=== PATIENT | male | born 1940 | race Two or more races ===

== ENCOUNTER → 2024-04-11 | Outpatient (CLI) | payer MEDICARE, BC, SELFPAY ==
[2024-04-11 09:13] LABS: Glucose Estimated Average 183 mg/dL (80-131)
[2024-04-11 09:46] LABS: Alanine Aminotransferase 20 U/L (10-49); Albumin, Serum 4.4 gm/dL (3.4-4.8); Albumin/Globulin Ratio 1.6 (1.2-2.2); Alkaline Phosphatase 53 U/L (46-116); Anion Gap 7 (7-16); Aspartate Amino Transferase 22 U/L (0-34); BUN/Creatinine Ratio 12 Ratio (12-20); Bilirubin,Total 0.5 mg/dL (0.3-1.2); Blood Urea Nitrogen 17 mg/dL (9-23); Calcium 9.5 mg/dL (8.3-10.6); Calcium (Corrected) 9.5 mg/dL (8.5-10.1); Carbon Dioxide 25.9 mMol/L (20.0-31.0); Cardiac Risk Estimate 2.9 RATIO (4.0-6.7); Chloride 106 mMol/L (98-107); Cholesterol 121 mg/dL (132-200); Creatinine (Component) 1.4 mg/dL (0.6-1.3); Globulin 2.8 gm/dL (2.3-3.5); Glucose 166 mg/dL (74-106); HDL Cholesterol 42 mg/dL (40-60); LDL Cholesterol,Calculated 59 mg/dL (0-130); Osmolality,Calculated 283 (275-295); Potassium 4.7 mMol/L (3.4-5.1); Sodium 139 mMol/L (136-145); Total Protein 7.2 gm/dL (5.7-8.2); Triglycerides 99 mg/dL (30-150); eGFR 50 See Note
== END | disposition home or self-care (01) ==
LOC: COPL 07:06
PROVIDERS: PCP Family Medicine; Referring Provider Internal Medicine Cardiovascular Disease; Visit Provider Family Medicine
DX: I25.10 Atherosclerotic heart disease of native coronary artery without angina pectoris (principal); E78.2 Mixed hyperlipidemia; I10 Essential (primary) hypertension
CPT/HCPCS: 36415; 80053; 80061; 83036

== ENCOUNTER → 2024-07-11 | Outpatient (CLI) | payer MEDICARE, BC, SELFPAY ==
[2024-07-11 09:03] LABS: Collection Type, Urine Clean Catch; Squamous Epithelial Cell,Urine 0 /hpf (0-5)
[2024-07-11 09:18] LABS: Basophils # (Auto) 0.1 Thou/mm3 (0.0-0.2); Basophils % (Auto) 2 % (0-2.5); Eosinophils # (Auto) 0.5 Thou/mm3 (0.0-0.5); Eosinophils % (Auto) 8 % (0-10); Hematocrit 38.3 % (41.0-53.0); Hemoglobin 12.6 g/dL (13.5-16.0); Immature Granulocytes % (Auto) 0 % (0-0); Immature Granulocytes Auto 0.02 Thou/mm3 (0.00-0.00); Lymphocytes # (Auto) 1.6 Thou/mm3 (1.0-4.8); Lymphocytes % (Auto) 27 % (10-50); Mean Corpuscular HGB Conc 32.9 g/dl (31.0-37.0); Mean Corpuscular Hemoglobin 30.5 pg (25.0-35.0); Mean Corpuscular Volume 93 fL (80-100); Monocytes # (Auto) 0.5 Thou/mm3 (0.0-0.8); Monocytes % (Auto) 8 % (0-12); Neutrophils # (Auto) 3.5 Thou/mm3 (1.8-7.7); Neutrophils % (Auto) 56 % (37-80); Nucleated Red Blood Cell % 0 /100 WBC (0); Platelet Count 156 Thou/mm3 (140-440); RDW Standard Deviation 45.3 fL (35.1-43.9); Red Blood Count 4.13 Miln/mm3 (4.50-5.90); White Blood Count 6.2 Thou/mm3 (3.8-10.6)
[2024-07-11 09:34] LABS: Glucose Estimated Average 189 mg/dL (80-131); Hemoglobin A1C 8.2 % Hgb (4.8-6.0)
[2024-07-11 09:37] LABS: Bilirubin,Urine Negative (Negative); Blood,Urine Negative (Negative); Clarity,Urine Clear (Clear/Hazy); Color,Urine Lt-Yellow (Lt Yel-Yel); Glucose, Urine 4+ (Negative); Ketones,Urine Negative (Negative); Leukocyte Esterase,Urine Negative (Negative); Nitrite,Urine Negative (Negative); Protein,Urine 1+ (Neg - Trace); RBC,Urine 1 /hpf (0-3); Specific Gravity,Urine 1.025 (1.001-1.035); Urobilinogen,Urine Negative mg/dL (0.0-1.0); WBC,Urine 1 /hpf (0-5)
[2024-07-11 10:05] LABS: Creatinine MALB Rnd Ur 73 mg/dL (30-125); Microalbumin Creat Ratio 179 mg/gCrea (<30); Microalbumin, Random Urine 131 mg/L (0-300)
[2024-07-11 10:43] LABS: Alanine Aminotransferase 17 U/L (10-49); Albumin, Serum 4.4 gm/dL (3.4-4.8); Albumin/Globulin Ratio 1.5 (1.2-2.2); Alkaline Phosphatase 54 U/L (46-116); Anion Gap 7 (7-16); Aspartate Amino Transferase 20 U/L (0-34); BUN/Creatinine Ratio 17 Ratio (12-20); Bilirubin,Total 0.6 mg/dL (0.3-1.2); Blood Urea Nitrogen 22 mg/dL (9-23); Calcium 9.4 mg/dL (8.3-10.6); Calcium (Corrected) 9.4 mg/dL (8.5-10.1); Carbon Dioxide 25.6 mMol/L (20.0-31.0); Cardiac Risk Estimate 2.5 RATIO (4.0-6.7); Chloride 107 mMol/L (98-107); Cholesterol 133 mg/dL (132-200); Creatinine (Component) 1.3 mg/dL (0.6-1.3); Globulin 2.9 gm/dL (2.3-3.5); Glucose 168 mg/dL (74-106); HDL Cholesterol 54 mg/dL (40-60); LDL Cholesterol,Calculated 59 mg/dL (0-130); Osmolality,Calculated 286 (275-295); Potassium 4.8 mMol/L (3.4-5.1); Sodium 140 mMol/L (136-145); Total Protein 7.3 gm/dL (5.7-8.2); Triglycerides 102 mg/dL (30-150); eGFR 54 See Note
[2024-07-11 11:03] LABS: Thyroid Stimulating Hormone 1.92 uIU/mL (0.55-4.78)
== END | disposition home or self-care (01) ==
PROVIDERS: PCP Family Medicine; Referring Provider Family Medicine; Visit Provider Family Medicine
DX: Z00.00 Encounter for general adult medical examination without abnormal findings (principal); I12.9 Hypertensive chronic kidney disease with stage 1 through stage 4 chronic kidney disease, or unspecified chronic kidney disease; E11.22 Type 2 diabetes mellitus with diabetic chronic kidney disease; N18.31 Chronic kidney disease, stage 3a; E78.2 Mixed hyperlipidemia; E11.59 Type 2 diabetes mellitus with other circulatory complications
CPT/HCPCS: 36415; 80053; 80061; 81001; 82043; 82570; 83036; 84443; 85025

== ENCOUNTER 2024-12-17 09:39 | Emergency (ER) | payer MEDICARE, BC, SELFPAY ==
[2024-12-17] VITALS (8 sets, daily range): BP systolic 101–146; BP diastolic 57–78; PULSE 60–85; RESP 17–19; TEMP 36.6–37; O2SAT 96–98; BMI 27.6
--- NOTE | 2024-12-17 10:52 | EDRME_ITS ---
Rapid Medical Screening Exam [facility] Arrival date/time: 12/17/24 09:39 Chief Complaint: Eye Problems Vital signs: Vital Signs Temperature 98.6 F 12/17/24 09:49 Pulse Rate 85 12/17/24 09:49 Respiratory Rate 19 12/17/24 09:49 Blood Pressure 101/65 12/17/24 09:49 Pulse Oximetry (%) 98 12/17/24 09:49 Oxygen Delivery Method Room Air 12/17/24 09:49 Pulse ox room air is 98% Vital signs reviewed by provider: Yes [facility] Narrative: 84-year-old male who is status post fall hitting cement with the left side of his face. This happened in September and the patient ignored the fall. Last night he developed pain to the left buddhism which caused him to have vomiting issues and loss of sight in his left eye.
--- NOTE | 2024-12-17 10:54 | XR_ITS ---
Examination: CT brain head without contrast. 2-D sagittal coronal reconstructions Date and time of exam:December 17, 2024 1303 hours INDICATIONS: Patient fell 10 weeks ago with injury to the head, head pain vision loss CTDI: vol (mGy):59.2 DLP: (mGycm):1180 Technique: Multiple CT axial sections of the brain have been obtained, 5 mm slice thickness. Contrast has not been administered. 2-D sagittal, coronal reconstructions have been obtained Low dose protocols were performed. One or more of the following dose reduction techniques were used; automated exposure control, adjustment of the mA and/or KV according to patient size, use of iterative reconstruction technique. Findings: Mild to moderate ventricular enlargement. No acute hemorrhage No mass effect upon the ventricular system Encephalomalacia right posterior temporal lobe Cranial vault intact IMPRESSION: No acute hemorrhage mass effect or midline shift
--- NOTE | 2024-12-17 11:37 | PC.NURSE ---
pt with c/o blurred vision to the left eye sp fall 2 weeks ago. states he tripped over curb, did not seek medical care at that time. pt also reports intermittent sharp pain to left holiness x2 days. redness to left eye noted. pt without further complaints at this time. orders received and initiated. call light placed within reach. at bedside. plan of care ongoing.
[2024-12-17 11:51] LABS: Basophils # (Auto) 0.1 Thou/mm3 (0.0-0.2); Basophils % (Auto) 1 % (0-2.5); Eosinophils # (Auto) 0.2 Thou/mm3 (0.0-0.5); Eosinophils % (Auto) 2 % (0-10); Hematocrit 38.5 % (41.0-53.0); Hemoglobin 12.8 g/dL (13.5-16.0); Immature Granulocytes Auto 0.02 Thou/mm3 (0.00-0.00); Lymphocytes # (Auto) 1.9 Thou/mm3 (1.0-4.8); Lymphocytes % (Auto) 22 % (10-50); Mean Corpuscular HGB Conc 33.2 g/dl (31.0-37.0); Mean Corpuscular Hemoglobin 30.7 pg (25.0-35.0); Mean Corpuscular Volume 92 fL (80-100); Monocytes # (Auto) 0.8 Thou/mm3 (0.0-0.8); Monocytes % (Auto) 9 % (0-12); Neutrophils # (Auto) 5.6 Thou/mm3 (1.8-7.7); Neutrophils % (Auto) 66 % (37-80); Nucleated Red Blood Cell # 0.00 Thou/mm3 (0.00-0.00); Nucleated Red Blood Cell % 0 /100 WBC (0); Platelet Count 186 Thou/mm3 (140-440); RDW Standard Deviation 44.9 fL (35.1-43.9); Red Blood Count 4.17 Miln/mm3 (4.50-5.90); White Blood Count 8.4 Thou/mm3 (3.8-10.6)
[2024-12-17 12:11] LABS: Alanine Aminotransferase 15 U/L (10-49); Albumin, Serum 4.7 gm/dL (3.4-4.8); Albumin/Globulin Ratio 1.5 (1.2-2.2); Alkaline Phosphatase 51 U/L (46-116); Anion Gap 12 (7-16); Aspartate Amino Transferase 25 U/L (0-34); BUN/Creatinine Ratio 15 Ratio (12-20); Bilirubin,Total 0.8 mg/dL (0.3-1.2); Blood Urea Nitrogen 21 mg/dL (9-23); Calcium 9.9 mg/dL (8.3-10.6); Calcium (Corrected) 9.9 mg/dL (8.5-10.1); Carbon Dioxide 23.9 mMol/L (20.0-31.0); Chloride 103 mMol/L (98-107); Creatinine (Component) 1.4 mg/dL (0.6-1.3); Estimated Creatinine Clearance 39.8 mL/min (>60); Globulin 3.2 gm/dL (2.3-3.5); Glucose 156 mg/dL (74-106); Osmolality,Calculated 283 (275-295); Potassium 4.5 mMol/L (3.4-5.1); Sodium 139 mMol/L (136-145); Total Protein 7.9 gm/dL (5.7-8.2); eGFR 49 See Note
--- NOTE | 2024-12-17 12:21 | XR_ITS ---
Examination: CT of orbits without intravenous contrast. 2-D sagittal reconstructions. 3-D reconstructions. Date and time of exam:December 17, 2024 1301 hours INDICATIONS: Patient fell 10 weeks ago with injury to the face, orbital pain CTDI: vol (mGy):38.5 DLP: (mGycm):278 Technique: Multiple axial images of maxillofacial region, 3.0 mm slice thickness. 2-D sagittal and coronal reconstructions. 3-D reconstructions. Low dose protocols were performed. One or more of the following dose reduction techniques were used; automated exposure control, adjustment of the mA and/or KV according to patient size, use of iterative reconstruction technique. Findings: Orbital rims appear intact The optic globes are intact with no retro-orbital contusion Optic nerves are unremarkable No nasal bone fracture. Frontal bones intact IMPRESSION: Orbital rims intact The optic globes are intact with no retro-orbital contusion.
--- NOTE | 2024-12-17 12:24 | PD.EDEYE ---
ED Eye Problem RME/HPI General Chief complaint: Eye Problems Stated complaint: Fell in September, can't see out of left eye Time Seen by Provider: 12/17/24 13:22 Arrival date/time: 12/17/24 09:39 Limitations: no limitations RME / HPI RME / HPI Narrative: 84-year-old male who is status post fall hitting cement with the left side of his face. This happened in September and the patient ignored the fall. Last night he developed pain to the left orthodox which caused him to have vomiting issues and loss of sight in his left eye. DR. PRIYANK NEGRON ED EVALUATION 84 year old male presents to the ED for evaluation of blurred vision today. Reportedly during his fall had struck the left side of his head on concrete without any loss of consciousness. States since the fall, he has had limited vision in the left eye. Now accompanied by a headache, described as aching in nature, located most to the left side. Rating as moderate. No other associated symptoms reported. Related Data Home Medications ?Medication ?Instructions ?Recorded ?Confirmed carvedilol 25 mg tablet (Coreg) 80 mg PO QDAY #0 tabs 03/19/14 09/20/17 metformin 850 mg tablet 850 mg PO BID #0 tabs 03/19/14 09/20/17 (Glucophage) glipizide 5 mg tablet, extended 5 mg PO QDAY #0 tabs 06/24/17 09/20/17 release 24 hr (Glucotrol XL) sitagliptin phosphate 100 mg 100 mg PO QDAY #0 tabs 06/24/17 09/20/17 tablet (Januvia) atorvastatin 10 mg tablet (Lipitor) 10 mg PO HS #0 tabs 06/27/17 09/20/17 aspirin 81 mg tablet,delayed 81 mg PO QDAY 09/20/17 09/20/17 release (Aspir-) omega 5-imw-kmg-fish oil 1,000 mg 1,000 mg PO QDAY 09/20/17 09/20/17 (120 mg-180 mg) capsule (Fish Oil) pioglitazone 15 mg tablet 15 mg PO QDAY 09/20/17 09/20/17 Previous Rx's ?Medication ?Instructions ?Recorded acetazolamide 500 mg 500 mg PO BID #60 caps 12/18/24 capsule,extended release brimonidine 0.2 % eye drops 1 drp ophthalmic (eye) BID #5 mL 12/18/24 dorzolamide 2 % eye drops 1 drp ophthalmic (eye) BID #10 mL 12/18/24 latanoprost 0.005 % eye drops 1 drp ophthalmic (eye) QPM #2.5 mL 12/18/24 timolol 0.5 % eye drops 1 drp ophthalmic (eye) BID #5 mL 12/18/24 Allergies Allergy/AdvReac Type Severity Reaction Status Date / Time NKA* Allergy Uncoded 12/17/24 09:45 Review of Systems Review of Systems Systems Reviewed: All systems reviewed, normal except as documented Past Medical History Past Medical History NEUROLOGIC: Negative Neurological Disorders or Seizures CARDIAC: Positive Cardiac Disorders, Coronary Artery Disease (CABG), Hypercholesterolemia, Congestive Heart Failure and Hypertension RESPIRATORY: Negative Chronic Obstructive Pulmonary Disease (COPD) (+smoker-pt denies) GASTROINTESTINAL: Negative Gastrointestinal Disorders GENITOURINARY: Negative Genitourinary Disorders or Renal Disease MUSCULOSKELETAL: Positive Musculoskeletal Disorders and Arthritis ENT: Positive Cataracts ENDOCRINE: Positive Endocrine Disorders and Diabetes Mellitus Type 2; Negative Diabetes Mellitus Type 1 HEMATOLOGIC: Negative Blood Disorders OTHER HISTORY: Positive Blood Transfusions and Chicken Pox; Negative Blood Transfusion Reaction or Anesthesia Reactions Family History FAMILY HISTORY: Positive Family Respiratory Disorders (father) and Family Cardiac Disorders (mother, brother); Negative Family Anesthesia Reaction (pt denies) Surgical History SURGICAL: Positive Cardiac Surgery, Coronary Artery Bypass Graft and Ear Surgery Social History SMOKING STATUS: Current every day smoker ED Exam General Limitations: Present no limitations General appearance: Present alert and in no apparent distress Head Head exam: Present atraumatic, normocephalic and normal inspection Eye Eye exam: Present other (Left sided scleral injection, left hyphema, left pupils is 5mm and sluggish to light accommodation, right pupils is 3 mm ) ENT ENT exam: Present normal exam, normal oropharynx and mucous membranes moist Neck Neck exam: Present normal inspection, full ROM and trachea midline Chest Chest inspection: Present normal inspection and symmetric chest wall rise Respiratory Respiratory exam: Present normal lung sounds bilaterally Cardiovascular Cardiovascular exam: Present regular rate, normal rhythm and normal heart sounds Abdominal Exam Abdominal exam: Present soft and normal bowel sounds Extremities Exam Extremities exam: Present normal inspection and full ROM Back Exam Back exam: Present normal inspection and full ROM Neurological Exam Neurological exam: Present alert, oriented X3 and CN II-XII intact Psychiatric Psychiatric exam: Present normal affect and normal mood Skin Skin exam: Present warm, dry, intact and normal color Course Quality Measures none Orders Category Date Time Status CT Screening NOW Care 12/17/24 12:[address] facial bones wo con Stat Exams 12/17/24 12:[address] head/brain wo con Stat Exams 12/17/24 10:[address] orbit BI wo/w con Stat Exams 12/17/24 12:21 Completed CBC Stat Lab 12/17/24 11:19 Completed CMP [Comprehensive Metabolic Panel] Stat Lab 12/17/24 11:19 Completed INR [Prothrombin Time with INR] Stat Lab 12/17/24 11:19 Completed PTT [Partial Thromboplastin Time] Stat Lab 12/17/24 11:19 Completed ACETAzolaMIDE [Diamox] Med 12/18/24 00:52 Discontinued 500 mg PO X1 ONE Vital Signs Vital signs: Vital Signs Temperature 98.6 F 12/17/24 09:49 Pulse Rate 85 12/17/24 09:49 Respiratory Rate 19 12/17/24 09:49 Blood Pressure 101/65 12/17/24 09:49 Pulse Oximetry (%) 98 12/17/24 09:49 Oxygen Delivery Method Room Air 12/17/24 09:49 Pulse ox is 98% on room air which is adequate. Eye MDM Narrative MDM Narrative:: Nia Eaton am scribing for and in the presence of Dr. Lee. 1800: Patient signed out to Dr. Irby pending crab butcher consultation. Patient data External records reviewed:: [facility] previous records (I reviewed H&P on 09/20/2017) Clinical information provided by:: patient Social determinants that could affect healthcare access:: none Patient has the following chronic illnesses:: Diabetes, hyperlipidemia How is presenting disease/condition affected by chronic disease/condition?: uneffected by Evaluation data The following diagnostics were reviewed and interpreted by me:: lab results and radiology exam(s) Lab and/or radiology exams considered but not ordered:: None Interpretation Summary: Ordering Physician: David Wang PA-C Date of Service: 12/17/24 Procedure(s): CT head/brain wo con Accession Number(s): [id number] cc: Roland Azar MD; Won Angelo MD; David Wang PA-C~ Examination: CT brain head without contrast. 2-D sagittal coronal reconstructions Date and time of exam:December 17, 2024 1303 hours INDICATIONS: Patient fell 10 weeks ago with injury to the head, head pain vision loss CTDI: vol (mGy):59.2 DLP: (mGycm):1180 Technique: Multiple CT axial sections of the brain have been obtained, 5 mm slice thickness. Contrast has not been administered. 2-D sagittal, coronal reconstructions have been obtained Low dose protocols were performed. One or more of the following dose reduction techniques were used; automated exposure control, adjustment of the mA and/or KV according to patient size, use of iterative reconstruction technique. Findings: Mild to moderate ventricular enlargement. No acute hemorrhage No mass effect upon the ventricular system Encephalomalacia right posterior temporal lobe Cranial vault intact IMPRESSION: No acute hemorrhage mass effect or midline shift Dictated By: Won Angelo MD Signed By: <Electronically signed by Won Angelo MD in OV> 12/17/24 1328 =- Ordering Physician: Juve Lee MD Date of Service: 12/17/24 Procedure(s): CT orbit BI wo/w con Accession Number(s): [id number] cc: Roland Azar MD; Won Angelo MD; Juve Lee MD~ Examination: CT of orbits without intravenous contrast. 2-D sagittal reconstructions. 3-D reconstructions. Date and time of exam:December 17, 2024 1301 hours INDICATIONS: Patient fell 10 weeks ago with injury to the face, orbital pain CTDI: vol (mGy):38.5 DLP: (mGycm):278 Technique: Multiple axial images of maxillofacial region, 3.0 mm slice thickness. 2-D sagittal and coronal reconstructions. 3-D reconstructions. Low dose protocols were performed. One or more of the following dose reduction techniques were used; automated exposure control, adjustment of the mA and/or KV according to patient size, use of iterative reconstruction technique. Findings: Orbital rims appear intact The optic globes are intact with no retro-orbital contusion Optic nerves are unremarkable No nasal bone fracture. Frontal bones intact IMPRESSION: Orbital rims intact The optic globes are intact with no retro-orbital contusion. Dictated By: Won Angelo MD Signed By: <Electronically signed by Won Angelo MD in OV> 12/17/24 1330 =- Ordering Physician: Juve Lee MD Date of Service: 12/17/24 Procedure(s): CT facial bones wo con Accession Number(s): [id number] cc: Roland Azar MD; Won Angelo MD; Juve Lee MD~ Examination: CT maxillofacial, without intravenous contrast. 2-D sagittal reconstructions. 3-D reconstructions. Date and time of exam:December 17, 2024 1303 hours INDICATIONS: Patient fell 10 weeks ago with injury to the face, facial orbital pain CTDI: vol (mGy):29 DLP: (mGycm):544 Technique: Multiple axial images of maxillofacial region, 3.0 mm slice thickness. 2-D sagittal and coronal reconstructions. 3-D reconstructions. Low dose protocols were performed. One or more of the following dose reduction techniques were used; automated exposure control, adjustment of the mA and/or KV according to patient size, use of iterative reconstruction technique. Findings: Frontal bone frontal sinuses intact Orbital rims intact with no blood in the maxillary antra. The optic globes are intact with no retro-orbital contusion No nasal bone fracture Pterygoid plates maxilla and the mandible are intact IMPRESSION: No acute facial fracture. Dictated By: Won Angelo MD Signed By: <Electronically signed by Won Angelo MD in OV> 12/17/24 1332 =- Medications / Prescriptions Medications or Prescriptions considered but not ordered:: None Medication administrations:: Medication Administration History Discontinued Medications Acetazolamide (Acetazolamide 250 Mg Tablet) 500 mg PO X1 ONE Stop: 12/18/24 00:53 None Consultations Consultation(s) initiated? (list below): No Diagnosis Eye Problem Differential Diagnosis: corneal abrasion, conjunctivitis, hyphema and subconjunctival hemorrhage Most likely diagnosis given after review of the tests above:: Traumatic left eye injury Hyphema Admission Indicated Admission indicated?: not indicated Explain why admission is indicated or not indicated:: Signed out pending final disposition. Admission Request Was there a request for admission?: No Disposition Plan Disposition Plan: other (specify) (Signed out to Dr. Irby pending crab butcher consultation. ) Discharge Plan Plan Patient Disposition: HOME (Self Care) Prescriptions/Referrals Prescriptions/Med Rec: New latanoprost 0.005 % drops 1 drp ophthalmic (eye) QPM Qty: 2.5 0RF acetazolamide 500 mg capsule, extended release 500 mg PO BID Qty: 60 0RF brimonidine 0.2 % drops 1 drp ophthalmic (eye) BID Qty: 5 0RF Rx Instructions: administer approximately 8 hours apart timolol 0.5 % drops 1 drp ophthalmic (eye) BID Qty: 5 0RF dorzolamide 2 % drops 1 drp ophthalmic (eye) BID Qty: 10 0RF No Action carvedilol [Coreg] 25 MG tablet 80 mg PO QDAY Qty: 0 metformin [Glucophage] 850 MG tablet 850 mg PO BID Qty: 0 glipizide [Glucotrol XL] 5 MG/BOTTLE tablet extended release 24 hr 5 mg PO QDAY Qty: 0 sitagliptin phosphate [Januvia] 100 MG tablet 100 mg PO QDAY Qty: 0 atorvastatin [Lipitor] 10 MG tablet 10 mg PO HS Qty: 0 pioglitazone 15 mg Tablet 15 mg PO QDAY aspirin [Aspir-81] 81 mg Tablet,Delayed Release (Dr/Ec) 81 mg PO QDAY omega 1-alt-dvx-fish oil [Fish Oil] 1,000 mg (120 mg-180 mg) Capsule 1,000 mg PO QDAY Referrals: Roland Azar MD [Primary Care Provider] - In 1 week Dominique Hernandez MD [Referring Provider] - Problem List Clinical Impression: Glaucoma Patient/Caregiver Discharge Instructions Education Materials: What Is Glaucoma? Additional Instructions: Follow up with Dr. Hernandez, ophthamology. Call office for appointment. [phone] Print Language: [place] Island[place] Stand Alone Forms: Sarah Award Info., Patient Portal Info Letter
--- NOTE | 2024-12-17 12:27 | XR_ITS ---
Examination: CT maxillofacial, without intravenous contrast. 2-D sagittal reconstructions. 3-D reconstructions. Date and time of exam:December 17, 2024 1303 hours INDICATIONS: Patient fell 10 weeks ago with injury to the face, facial orbital pain CTDI: vol (mGy):29 DLP: (mGycm):544 Technique: Multiple axial images of maxillofacial region, 3.0 mm slice thickness. 2-D sagittal and coronal reconstructions. 3-D reconstructions. Low dose protocols were performed. One or more of the following dose reduction techniques were used; automated exposure control, adjustment of the mA and/or KV according to patient size, use of iterative reconstruction technique. Findings: Frontal bone frontal sinuses intact Orbital rims intact with no blood in the maxillary antra. The optic globes are intact with no retro-orbital contusion No nasal bone fracture Pterygoid plates maxilla and the mandible are intact IMPRESSION: No acute facial fracture.
[2024-12-17 12:43] LABS: INR 1.2 (0.9-1.3); Partial Thromboplastin Time 29.7 Seconds (22.0-36.0); Prothrombin Time 13.0 Seconds (9.0-12.2)
--- NOTE | 2024-12-17 17:40 | PC.CC ---
Addendum entered by Devin Jalloh RN 12/17/24 18:29: 1815 Contacted [facility] transfer center, confirmed clinicals were received. [facility] transfer nurse will call back. Addendum entered by Devin Jalloh RN 12/17/24 18:15: 1810 Tricia from [facility] called to decline transfer due to no oracle database consultant optomology. Original Note: 1700 Clinicals faxed to [facility] and [facility]. 1600 received call from [facility] ED Charge Nurse with a request for consult form a trauma center for optomology. Dr. Lee requesting to speak to optomolgist for patient that has lose of sight in left eye s/p fall.
--- NOTE | 2024-12-17 18:14 | PD.EDADDENDU ---
Emergency Room Addendum Addendum Narrative: 1800: Care assumed from Dr. eLe (emergency physician). Past medical, surgical, social and family history reviewed. Vitals and home medications reviewed. Results and treatment plan discussed. They will assume the care of the patient at this time and will follow the patient, pending ophthalmology consult. The following addendum documentation note is intended to reflect any pending information, findings, or radiology results not included in the patient?s initial chart by the previous shift scribe. 2216: [facility] denied patient for transfer stating they are at capacity and are only accepting trauma patients. 2355: Discussed with Rolando from [facility] for consult. Reviewed the patient?s HPI, PMHx, lab and/or radiology results. Treatment plan was discussed. 0052: I have spoken with the patient and discussed today?s findings, in addition to providing specific details for the plan of care. Questions are answered and there is an agreement with the plan. Re-assessment at the time of disposition demonstrates that the patient is in no acute distress. The patient has remained stable throughout the entire ED visit and is without objective evidence for acute process requiring urgent intervention or hospitalization. The patient is stable for discharge; counseling is provided and documented as above, discussing symptomatic treatment and specific conditions for return.
--- NOTE | 2024-12-17 22:22 | PC.NURSE ---
[facility] CONTACTED REGARDING TRANSFER THEY STATED THEY ARE AT CAPACITY AND ARE ON A CASE BY CASE BASIS WILL REJECT THIS TRANSFER AT THIS TIME.
--- NOTE | 2024-12-17 22:28 | PC.NURSE ---
[facility] HAS OPHTHALMOLOGY DIE MECHANIC, FAXED OVER CLINICALS. ROBERT, ROAD CONTRACTOR STATED HE WOULD REVIEW ONCE RECEIVED.
[2024-12-18 00:59] VITALS: BP 139/72; PULSE 61; RESP 19; TEMP 36.7; O2SAT 96
--- NOTE | 2024-12-18 01:48 | PC.NURSE ---
[facility] REACHED BACK REGARDING TRANSFER STATES PT CAN FOLLOW UP OUT PT. PT WILL BE GIVEN INFORMATION ON DISCHARGE PAPERWORK ALONG WITH RX ORDERED BY OPHTHALMOLOGY. PT IS OK TO BE DISCHARGED PER MD META
[2024-12-18 02:11] VITALS: BP 135/81; RESP 19; O2SAT 98
== END 2024-12-18 02:14 | disposition home or self-care (01) ==
PROVIDERS: Emergency Medicine; Physician Assistant; Emergency Provider Emergency Medicine; PCP Family Medicine
DX: H40.9 Unspecified glaucoma (principal); R51.9 Headache, unspecified
CPT/HCPCS: 36415; 70450; 70482; 70486; 80053; 85025; 85610; 85730; 99284; A4649; Q9967

== ENCOUNTER → 2025-01-16 | Outpatient (CLI) | payer MEDICARE, BC, SELFPAY ==
[2025-01-16 09:37] LABS: Glucose Estimated Average 160 mg/dL (80-131); Hemoglobin A1C 7.2 % Hgb (4.8-6.0)
[2025-01-16 09:40] LABS: Alanine Aminotransferase 14 U/L (10-49); Albumin, Serum 4.2 gm/dL (3.4-4.8); Albumin/Globulin Ratio 1.6 (1.2-2.2); Alkaline Phosphatase 50 U/L (46-116); Anion Gap 10 (7-16); Aspartate Amino Transferase 19 U/L (0-34); BUN/Creatinine Ratio 13 Ratio (12-20); Bilirubin,Total 0.6 mg/dL (0.3-1.2); Blood Urea Nitrogen 16 mg/dL (9-23); Calcium 9.9 mg/dL (8.3-10.6); Calcium (Corrected) 9.9 mg/dL (8.5-10.1); Carbon Dioxide 21.3 mMol/L (20.0-31.0); Cardiac Risk Estimate 2.4 RATIO (4.0-6.7); Chloride 112 mMol/L (98-107); Cholesterol 128 mg/dL (132-200); Creatinine (Component) 1.2 mg/dL (0.6-1.3); Globulin 2.7 gm/dL (2.3-3.5); Glucose 104 mg/dL (74-106); HDL Cholesterol 54 mg/dL (40-60); LDL Cholesterol,Calculated 56 mg/dL (0-130); Osmolality,Calculated 286 (275-295); Potassium 3.9 mMol/L (3.4-5.1); Sodium 143 mMol/L (136-145); Total Protein 6.9 gm/dL (5.7-8.2); Triglycerides 91 mg/dL (30-150); eGFR 59 See Note
== END | disposition home or self-care (01) ==
PROVIDERS: PCP Family Medicine; Referring Provider Family Medicine; Visit Provider Family Medicine
DX: E11.65 Type 2 diabetes mellitus with hyperglycemia (principal); E78.2 Mixed hyperlipidemia; I10 Essential (primary) hypertension
CPT/HCPCS: 36415; 80053; 80061; 83036

== ENCOUNTER → 2025-01-23 | Outpatient (CLI) | payer MEDICARE, BC, SELFPAY ==
--- NOTE | 2025-01-23 13:00 | XR_ITS ---
Examination: Carotid arterial duplex scan, ultrasound. Date and time of exam: January 23, 2025 1209 hours INDICATIONS: Episode left eye blindness one month ago Technique: Multiple sonographic images have been obtained of the carotid arteries and vertebral arteries, B-mode/grayscale imaging and Doppler spectral analysis and color flow Peak systolic and diastolic velocities have been recorded. Systolic diastolic ratios have been calculated. Findings: Right peak systolic velocities: Distal internal carotid artery peak systolic velocity is 0.9 M/sec Proximal internal carotid artery peak systolic velocity is 0.7 M/sec Carotid bifurcation peak systolic velocity is 0.6 M/sec External carotid artery peak systolic velocity is 0.9 M/sec Vertebral artery flow is antegrade. Left peak systolic velocities: Distal internal carotid artery peak systolic velocity is 0.8 M/sec Proximal internal carotid artery peak systolic velocity is 1.1 M/sec Carotid bifurcation peak systolic velocity is 0.7 M/sec External carotid artery peak systolic velocity is 1.5 M/sec Vertebral artery flow is antegrade Doppler waveform analysis demonstrates no spectral broadening Impression: Right internal carotid artery demonstrates 10-30% stenosis. Left internal carotid artery demonstrates 20-40% stenosis.
== END | disposition home or self-care (01) ==
PROVIDERS: PCP Ophthalmology; Referring Provider Family Medicine; Visit Provider Family Medicine
DX: I65.22 Occlusion and stenosis of left carotid artery (principal); I48.20 Chronic atrial fibrillation, unspecified; I50.22 Chronic systolic (congestive) heart failure
CPT/HCPCS: 93880